=== PATIENT | male | born 1955 | race Caucasian/White ===

== ENCOUNTER 2019-11-22 13:11 | Day surgery (SDC) | payer MEDICARE ==
[2019-11-20 16:40] LABS: BASOPHILS # (AUTO) 0.12 x10^3/uL (0-0.1); BASOPHILS % (AUTO) 1 % (0-1); EOSINOPHILS # (AUTO) 0.07 x10^3/uL (0-0.4); EOSINOPHILS % (AUTO) 1 % (1-7); LYMPHOCYTES # (AUTO) 1.65 x10^3/uL (1-3.4); LYMPHOCYTES % (AUTO) 15 % (22-44); MD NO; MEAN CORPUSCULAR HGB CONC 33.6 g/dL (33.2-36.2); MEAN CORPUSCULAR VOLUME 92.4 fL (81-97); MEAN PLATELET VOLUME 8.8 fL (7.4-10.4); MONOCYTES # (AUTO) 0.38 x10^3/uL (0.2-0.8); MONOCYTES % (AUTO) 3 % (2-9); NEUTROPHILS # (AUTO) 8.97 x10^3/uL (1.8-6.8); NEUTROPHILS % (AUTO) 80 % (42-75); PLATELET COUNT 365 x10^3/uL (130-400); RED BLOOD COUNT 4.08 x10^6/uL (4.38-5.82); RED CELL DISTRIBUTION WIDTH 14.6 % (9.4-14.8)
[2019-11-20 16:51] LABS: ALANINE AMINOTRANSFERASE 18 U/L (12-78); ALBUMIN 4.4 g/dL (3.4-5.0); ANION GAP 6 mmol/L (5-15); CALCIUM 9.9 mg/dL (8.5-10.1); CHLORIDE 109 mmol/L (98-107); CREATININE 2.18 mg/dL (0.7-1.3)
[2019-11-20 16:54] LABS: ALKALINE PHOSPHATASE 53 U/L (45-117); BILIRUBIN,TOTAL 0.2 mg/dL (0.2-1.0); TOTAL PROTEIN 8.9 g/dL (6.4-8.2)
[~2019-11-22] VITALS: Ht 180.3 cm; Wt 94.0 kg
[~2019-11-22 13:11] MED LIST: DIAZ5TAB4 PO; FENO145T32 PO; LEVO25TA2 PO; OXYC30TA PO; SIMV40TA20 PO; [UNRECOGNIZED DRUG - OTHER] PO
[2019-11-22] MEDS ORDERED: antibiotic PO (13:52)
[2019-11-22 13:54] VITALS: BP 121/78
[2019-11-22] MEDS ORDERED: DIAZEPAM 5 MG TABLET PO ONE (14:00)
[2019-11-22] MEDS: SODIUM CHLORIDE 0.9% 1,000 ML IV SCH ×2 (14:10→19:38)
[2019-11-22] MEDS ORDERED: KETAMINE 10 MG/ML, 20ML ONE (14:55)
[2019-11-22] MEDS ORDERED: MIDAZOLAM 1 MG/ML, 2ML ONE (15:13)
[2019-11-22] MEDS ORDERED: FENTANYL PF 250 MCG/5ML ONE (15:14)
[2019-11-22] MEDS ORDERED: SUGAMMADEX 200 MG/2 ML IVPush ONE (15:16)
[2019-11-22] MEDS ORDERED: SUCCINYLCHOLINE 20 MG/ML, 10ML ONE (15:16)
[2019-11-22] MEDS ORDERED: PROPOFOL 10 MG/ML, 20ML ONE (15:16)
[2019-11-22] MEDS ORDERED: ROCURONIUM 10 MG/ML,10ML ONE (15:16)
[2019-11-22] MEDS ORDERED: CIPROFLOXACIN/PMX 400MG/200ML 200 ML ONE (15:31)
[2019-11-22] MEDS ORDERED: hydrALAzine 20 MG/ML, 1ML IV PRN (16:00)
[2019-11-22] MEDS ORDERED: ALBUTEROL SULFATE 2.5 MG/3 ML NPPB PRN (16:00)
[2019-11-22] MEDS ORDERED: KETOROLAC 30 MG/1 ML IV PRN (16:00)
[2019-11-22] MEDS ORDERED: LABETALOL 5MG/ML, 20ML IV PRN (16:00)
[2019-11-22] MEDS ORDERED: PROMETHAZINE 25 MG/ML, 1ML IV PRN (16:00)
[2019-11-22] MEDS ORDERED: METOCLOPRAMIDE 5 MG/ML, 2ML IV PRN (16:00)
[2019-11-22] MEDS ORDERED: DIAZEPAM 5 MG/ML, 2ML IV PRN ×2 (16:00)
[2019-11-22] MEDS ORDERED: OXYcodone 5 MG/5 ML ORAL.SOL UDC PO PRN (16:00)
[2019-11-22] MEDS ORDERED: ONDANSETRON 2MG/ML, 2ML IVPush PRN (16:00)
[2019-11-22] MEDS ORDERED: HYDROmorphone 1 MG/ML, 1ML INJ ONE ×2 (16:24→17:57)
[2019-11-22] MEDS ORDERED: MEPERIDINE/PF 25MG/ML,1ML ONE ×2 (16:24→18:08)
[2019-11-22] MEDS ORDERED: FENTANYL PF 100 MCG/2ML ONE (16:24)
[2019-11-22] MEDS ORDERED: OXYcodone 5 MG/5 ML ORAL.SOL UDC ONE (16:25)
[2019-11-22] MEDS: MEPERIDINE/PF 25MG/0.5ML IVPush PRN ×2 (16:30→18:10)
[2019-11-22] MEDS: FENTANYL PF 100 MCG/2ML IV PRN ×2 (16:49→17:05)
[2019-11-22] MEDS ORDERED: OPIUM/BELLADONNA SUPP.RECT 16.2-30 MG ONE (16:59)
[2019-11-22] MEDS: HYDROmorphone 1 MG/ML, 1ML INJ IV PRN ×4 (17:00→18:04)
[2019-11-22] MEDS ORDERED: OPIUM/BELLADONNA SUPP.RECT 16.2-30 MG PR PRN ×2 (17:00→19:00)
[2019-11-22] MEDS ORDERED: DIAZEPAM 5 MG TABLET ONE (18:16)
[2019-11-22] MEDS ORDERED: HYDROmorphone 2 MG/ML, 1ML IV PRN (19:00)
[2019-11-22] MEDS ORDERED: ONDANSETRON 2MG/ML, 2ML IV PRN (19:00)
[2019-11-22] MEDS: D5%-0.45% NACL 1,000 ML IV SCH (19:00)
[2019-11-22] MEDS ORDERED: DIAZEPAM 5 MG TABLET PO PRN (19:00)
[2019-11-22 20:04] VITALS: BP 103/58
[2019-11-22] MEDS: OXYcodone IR 30 MG TABLET PO PRN (20:38)
[2019-11-22] MEDS ORDERED: SIMVASTATIN 40 MG TABLET PO SCH (21:00)
[2019-11-23 00:36] VITALS: BP 102/63
[2019-11-23] MEDS: D5%-0.45% NACL 1,000 ML IV SCH ×2 (03:00→12:12)
[2019-11-23] MEDS: OXYcodone IR 30 MG TABLET PO PRN ×3 (03:01→13:42)
[2019-11-23 05:33] VITALS: BP 106/68
[2019-11-23] MEDS ORDERED: LEVOTHYROXINE 25 MCG TABLET PO SCH (06:00)
[2019-11-23] MEDS ORDERED: CIPROFLOXACIN/PMX 400MG/200ML 200 ML IVPB SCH (08:00)
[2019-11-23 08:17] VITALS: BP 117/75
[2019-11-23 13:21] VITALS: BP 130/80
[2019-11-23 14:17] VITALS: BP 128/77
== END 2019-11-23 14:48 | disposition home or self-care (01) ==
LOC: OUT 13:11 → 4NE 18:29 → UNDOADMIN 18:38 → OUT 18:45 → 4NE 11-23 14:40 → DCLOUNGE 11-23 14:40 → UNDODISIN 11-23 14:48 → OUT 11-23 14:48
PROVIDERS: ATTEND Urology
DX: C61 Malignant neoplasm of prostate (principal); N40.1 Benign prostatic hyperplasia with lower urinary tract symptoms; R33.8 Other retention of urine; N41.0 Acute prostatitis; N39.0 Urinary tract infection, site not specified; N52.9 Male erectile dysfunction, unspecified; N17.9 Acute kidney failure, unspecified; E03.9 Hypothyroidism, unspecified; I10 Essential (primary) hypertension; E78.5 Hyperlipidemia, unspecified; Z79.890 Hormone replacement therapy; Z79.891 Long term (current) use of opiate analgesic; Z79.899 Other long term (current) drug therapy; Z80.0 Family history of malignant neoplasm of digestive organs
CPT/HCPCS: 36415; 52601; 80053; 85025; 88305; 93005; J0330; J0744; J1170; J2175; J2250; J2704; J3010; J3360; J7030; G0378